=== PATIENT | female | born 1980 | race Caucasian/White ===

== ENCOUNTER 2016-06-15 03:43 | Emergency (ER) | payer SELFPAY ==
[2016-06-15 04:04] VITALS: BP 134/82
[2016-06-15] MEDS ORDERED: LORazepam 1 MG Tab PO ONE (04:19)
[2016-06-15] MEDS ORDERED: Ketorolac 60 MG/2 ML SDV IM ONE (04:19)
--- NOTE | 2016-06-15 04:21 | EDM.PDOC ---
ED HISTORY OF PRESENT ILLNESS - General Chief Complaint: Respiratory Problem Stated Complaint: SOB LEFT SHOULDER PAIN Time Seen by Provider: 06/15/16 04:10 Source: Reports: Patient, RN notes reviewed History Limitations: Reports: No limitations - History of Present Illness INITIAL COMMENTS - FREE TEXT/NARRATIVE: 35-year-old female presents emergency department day complaint of left shoulder pain and shortness of breath, she states had this for about 3 days it will come and go denies any nausea diaphoresis or radiation of the pain she takes no medications - Related Data Allergies/ADRs: Allergies Allergy/AdvReac Type Severity Reaction Status Date / Time No Known Allergies Allergy Verified 06/15/16 03:53 Home Meds: Home Meds NK [No Known Home Meds] 11/25/14 [History] 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: - Infectious Disease History Infectious Disease History: Reports: Chicken pox - Past Surgical History GI Surgical History: Reports: Cholecystectomy Female Surgical History: Reports: section Musculoskeletal Surgical History: Reports: Other (see below) Other Musculoskeletal Surgeries/Procedures:: left thumb surgery Social & Family History - Tobacco Use Smoking Status *Q: Never Smoker Years of Tobacco use: 10 Packs/Tins Daily: 0.5 Second Hand Smoke Exposure: Yes - Caffeine Use Caffeine Use: Reports: Coffee, Energy drinks, Soda, Tea - Recreational Drug Use Recreational Drug Use: No ED ROS GENERAL - Review of Systems Review Of Systems: See Below Constitutional: Reports: no symptoms HEENT: Reports: No symptoms Respiratory: Reports: Shortness of Breath Cardiovascular: Reports: Chest pain, Dyspnea on exertion GI/Abdominal: Reports: No symptoms : Reports: no symptoms Musculoskeletal: Reports: no symptoms Skin: Reports: no symptoms Neurological: Reports: No Symptoms Psychiatric: Reports: Other (Heavy stress) ED EXAM, GENERAL - Physical Exam Exam: See Below Free Text/Narrative:: General: Female, mildly anxious, alert and oriented x3 HEENT: head is atraumatic normocephalic, eyes pupils equal round reactive to light, sclera clear no conjunctivitis appreciated. Ears tympanic membranes clear and be[place] landmarks and light reflex are present bilaterally canals are clear. Nose no septal deviation, nares are clear, no blood present. Mouth mucosa is moist and pink no erythema or exudate noted in soft palate, tongue is midline uvula is midline, dentition is intact. Neck: Supple no thyromegaly no tracheal deviation. Nodes: Cervical nodes subclavicular nodes nontender no palpable lymphadenopathy noted. Lungs: clear to auscultation bilaterally with symmetrical respirations, no adventitious noise appreciated. CV: Regular rate and rhythm S1 and S2 appreciated no murmurs rubs or gallops noted. Abdomen: Soft, nontender, no palpable masses or organomegaly appreciated, no distention no guarding bowel sounds are present, . Neuro: Cranial nerves II through XII grossly intact Skin: Warm and dry, intact, multiple tattoos Extremities: No lower extremity edema appreciated, Course - Vital Signs Last Recorded V/S: Last Vital Signs Temp 99.2 F 06/15/16 03:53 Pulse 75 06/15/16 03:53 Resp 18 06/15/16 03:53 BP 134/82 06/15/16 03:53 Pulse Ox 97 06/15/16 03:53 - Orders/Labs/Meds Orders: Active Orders 24 hr Category Date Time Status Cardiac Monitoring [RC] .As Directed Care 06/15/16 04:17 Active EKG Documentation Completion [RC] ASDIRECTED Care 06/15/16 04:18 Active Chest 2V [CR] Urgent Exams 06/15/16 04:19 Taken EKG 12 Lead [EK] Stat Ther 06/15/16 04:18 Ordered Labs: Laboratory Tests 06/15/16 06/15/16 06/15/16 Range/Units 04:17 04:17 05:16 WBC 11.8 H (4.5-11.0) K/uL RBC 4.25 (3.30-5.50) M/uL Hgb 12.4 (12.0-15.0) g/dL Hct 38.4 (36.0-48.0) % MCV 90 (80-98) fL MCH 29 (27-31) pg MCHC 32 (32-36) % Plt Count 239 (150-400) K/uL Neut % (Auto) 74 H (36-66) % Lymph % (Auto) 16 L (24-44) % [place] % (Auto) 6 (2-6) % Eos % (Auto) 3 (2-4) % Baso % (Auto) 1 (0-1) % Sodium 141 (140-148) mmol/L Potassium 3.5 L (3.6-5.2) mmol/L Chloride 105 (100-108) mmol/L Carbon Dioxide 26 (21-32) mmol/L Anion Gap 13.5 (5.0-14.0) mmol/L BUN 8 (7-18) mg/dL Creatinine 0.9 (0.6-1.0) mg/dL Est Cr Clr Drug Dosing 92.05 mL/min Estimated GFR (MDRD) > 60 (>60) Glucose 95 (74-106) mg/dL Calcium 8.2 L (8.5-10.1) mg/dL Total Bilirubin 0.5 (0.2-1.0) mg/dL AST 41 H (15-37) U/L ALT 58 (12-78) U/L Alkaline Phosphatase 80 (46-116) U/L Troponin I < 0.017 (0.000-0.056) ng/mL Total Protein 7.4 (6.4-8.2) g/dL Albumin 3.4 (3.4-5.0) g/dL Globulin 4.0 H (2.3-3.5) g/dL Albumin/Globulin Ratio 0.9 L (1.2-2.2) Lipase 251 (73-393) U/L Urine Color Yellow Urine Appearance Clear Urine pH 5.0 (4.5-8.0) Ur Specific [place] 1.020 (1.008-1.030) Urine Protein Negative (NEGATIVE) mg/dL Urine Glucose (UA) Normal (NEGATIVE) mg/dL Urine Ketones Negative (NEGATIVE) mg/dL Urine Occult Blood Large (NEGATIVE) Urine Nitrite Negative (NEGATIVE) Urine Bilirubin Negative (NEGATIVE) Urine Urobilinogen Normal (NORMAL) mg/dL Ur Leukocyte Esterase Negative (NEGATIVE) Urine RBC 0-5 (0-5) Urine WBC 0-5 (0-5) Ur Epithelial Cells Rare Amorphous Sediment Not seen Urine Bacteria Few Urine Mucus Not seen Meds: Medications Discontinued Medications Generic Name Dose Route Start Last Admin Trade Name Freq PRN Reason Stop Dose Admin Ketorolac Tromethamine 60 mg 06/15/16 04:19 06/15/16 04:31 Toradol IM 06/15/16 04:20 60 mg ONETIME ONE Administration Lorazepam 1 mg 06/15/16 04:19 06/15/16 04:33 Ativan PO 06/15/16 04:20 1 mg ONETIME ONE Administration Departure - Departure Time of Disposition: 05:39 Disposition: Home, Self-Care 01 Condition: good Clinical Impression: Panic attack Forms: ED Department Discharge Additional Instructions: Use Ativan as needed for stress and anxiety, use ibuprofen or Motrin for chest wall pain, Please followup with your primary care provider in 3-5 days if not better, please call return to the emergency department with worsening of symptoms. - My Orders Last 24 Hours: My Active Orders 06/15/16 04:17 Cardiac Monitoring [RC] .As Directed 06/15/16 04:18 EKG Documentation Completion [RC] ASDIRECTED EKG 12 Lead [EK] Stat 06/15/16 04:19 Chest 2V [CR] Urgent - Assessment/Plan Last 24 Hours: My Active Orders 06/15/16 04:17 Cardiac Monitoring [RC] .As Directed 06/15/16 04:18 EKG Documentation Completion [RC] ASDIRECTED EKG 12 Lead [EK] Stat 06/15/16 04:19 Chest 2V [CR] Urgent Plan: Assessment Acuity = acute Site and laterality = panic attack Etiology = secondary to stress Manifestations = chest pain, shortness of breath Location of injury = home Lab values = CBC, CMP, urinalysis, troponin, chest x-ray are within normal limits Plan She had good improvement combination Ativan and Toradol plan is discharge home with 10 Ativan followup primary care in 3-5 days for reevaluation Patient was in agreement with the plan all questions were answered, they were instructed to return to the emergency department or call for worsening symptoms. This note was dictated using [employer] voice recognition software please call with any questions.
--- NOTE | 2016-06-15 09:13 | CR ---
Chest 2V FINDINGS: There are shallow lung volumes. There is mild basilar atelectasis. The heart and vascular structures are normal in appearance. No infiltrates or effusions are demonstrated. The skeletal stru ctures are unremarkable. IMPRESSION: Negative exam.
== END 2016-06-15 05:56 | disposition home or self-care (01) ==
LOC: JP.ED 03:43
DX: F41.0 Panic disorder [episodic paroxysmal anxiety] (principal); M25.512 Pain in left shoulder; Z90.49 Acquired absence of other specified parts of digestive tract
CPT/HCPCS: 36415; 71020; 80053; 81001; 83690; 84484; 85025; 93005; 96372; 99284; A9270; J1885; 93010; 99283

== ENCOUNTER 2017-08-26 20:45 | Emergency (ER) | payer MEDICAID ==
[2017-08-26 21:10] VITALS: BP 123/79
--- NOTE | 2017-08-26 21:12 | EDM.PDOC ---
ED HPI GENERAL MEDICAL PROBLEM - General Chief Complaint: Upper Extremity Injury/Pain Stated Complaint: CROOKED RT RING FINGER Time Seen by Provider: 08/26/17 20:51 Source of Information: Reports: Patient History Limitations: Reports: No Limitations - History of Present Illness INITIAL COMMENTS - FREE TEXT/NARRATIVE: for one week, pain to right hand, ring finger no injury finger has full rom, +sensation, no pus, no red streaking Onset: Gradual Location: Reports: Upper Extremity, Right Improves with: Reports: None Worsens with: Reports: None - Related Data Allergies Allergy/AdvReac Type Severity Reaction Status Date / Time No Known Allergies Allergy Verified 08/26/17 21:02 Home Meds: Home Meds NK [No Known Home Meds] 11/25/14 [History] 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 ED EXAM, GENERAL - Physical Exam Exam: See Below Exam Limited By: No Limitations General Appearance: Alert, WD/WN, No Apparent Distress Head: Atraumatic, Normocephalic Respiratory/Chest: Lungs Clear Cardiovascular: Regular Rate, Rhythm Extremities: Normal Inspection, Normal Range of Motion, Other (ring finger, full rom, painful mid/ no discharge/no injury) Course - Vital Signs Last Recorded V/S: Last Vital Signs Temp 97.5 F 08/26/17 21:06 Pulse 67 08/26/17 21:06 Resp 14 08/26/17 21:06 BP 123/79 08/26/17 21:06 Pulse Ox 98 08/26/17 21:06 Departure - Departure Time of Disposition: 21:11 Disposition: Home, Self-Care 01 Condition: Good Clinical Impression: Finger pain, right - Discharge Information Instructions: Pain Without a Known Cause Referrals: PCP,None [Primary Care Provider] - Forms: ED Department Discharge Additional Instructions: Ice to affected area Tylenol/motrin for pain Keflex for infection; do not take unless it is getting worse 1)fever, 2) redness 3) drainage/pus - Problem List & Annotations (1) Finger pain, right SNOMED Code(s): 59211792 Code(s): M79.644 - PAIN IN RIGHT FINGER(S) Status: Acute Priority: Low Current Visit: Yes - Problem List Review Problem List Initiated/Reviewed/Updated: Yes
== END 2017-08-26 21:30 | disposition home or self-care (01) ==
LOC: JP.ED 20:45
DX: M79.644 Pain in right finger(s) (principal)
CPT/HCPCS: 99283

== ENCOUNTER 2018-07-11 16:27 | Emergency (ER) | payer MEDICAID ==
[2018-07-11 16:42] VITALS: BP 147/90
[2018-07-11] MEDS ORDERED: Ketorolac 60 MG/2 ML SDV IM ONE (17:20)
[2018-07-11] MEDS ORDERED: LORazepam 0.5 MG Tab PO ONE (17:20)
--- NOTE | 2018-07-11 18:31 | CRLCR ---
HISTORY: Anterior chest wall trauma. TECHNIQUE: Two views of the sternum. COMPARISON: No prior. FINDINGS: The junction of the manubrium with the body of the sternum appears maintained. There is no acute sternal fracture. IMPRESSION: No acute sternal fracture. Dictated by Jose Castillo MD @ 07/11/2018 6:30:22 PM Dictated by: Jose Castillo MD @ 07/11/2018 18:30:25 (Electronically Signed)
--- NOTE | 2018-07-11 18:31 | CRLCR ---
HISTORY: Shortness of breath. TECHNIQUE: Two views of the chest. COMPARISON: No prior. FINDINGS: Cardiac size and pulmonary vasculature within normal limits. There is no focal lung infiltrate or pulmonary edema. No pneumothorax or pleural effusion. No acute bony abnormality. IMPRESSION: No acute cardiopulmonary disease. Dictated by Jose Castillo MD @ 07/11/2018 6:28:42 PM Dictated by: Jose Castillo MD @ 07/11/2018 18:28:48 (Electronically Signed)
--- NOTE | 2018-07-11 18:37 | EDM.PDOC ---
ED HPI GENERAL MEDICAL PROBLEM - General Chief Complaint: General Stated Complaint: TROUBLE BREATHING Time Seen by Provider: 07/11/18 16:40 Source of Information: Reports: Patient History Limitations: Reports: No Limitations - History of Present Illness INITIAL COMMENTS - FREE TEXT/NARRATIVE: pt arrived feeling very sob. She felt like she could not get her breath. She was putting groceries away and a gallon of vibnegar came down on her sterum and knocked the wind out of her. She does think she paniked. 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: Reports: - Infectious Disease History Infectious Disease History: Reports: Chicken Pox - Past Surgical History GI Surgical History: Reports: Cholecystectomy Female Surgical History: Reports: Section Musculoskeletal Surgical History: Reports: Other (See Below) Other Musculoskeletal Surgeries/Procedures:: thumb surgery Social & Family History - Tobacco Use Smoking Status *Q: Current Every Day Smoker Years of Tobacco use: 15 Packs/Tins Daily: 0.1 - Caffeine Use Caffeine Use: Reports: Soda - Recreational Drug Use Recreational Drug Use: No - Living Situation & Occupation Occupation: Employed (working two job, both required prolonged standing.) ED ROS GENERAL - Review of Systems Review Of Systems: See Below Constitutional: Reports: No Symptoms HEENT: Reports: No Symptoms Respiratory: Reports: Shortness of Breath, Other (pt felt like she couldn,t get her breath. ) Cardiovascular: Reports: No Symptoms Endocrine: Reports: No Symptoms GI/Abdominal: Reports: No Symptoms : Reports: No Symptoms Musculoskeletal: Reports: Other (pain in the anterior chest. ) Skin: Reports: No Symptoms ED EXAM, GENERAL - Physical Exam Exam: See Below Free Text/Narrative:: Pt is breathing short and fasr. She continues to feel short of breath. She still feels panicy. Exam Limited By: No Limitations General Appearance: Alert, Anxious, Moderate Distress Ears: Normal TMs Nose: Normal Inspection Throat/Mouth: Normal Inspection Head: Atraumatic Neck: Normal Inspection Respiratory/Chest: Other (pt is hyperventilating. ) Cardiovascular: Regular Rate, Rhythm GI/Abdominal: Soft, Non-Tender (Female) Exam: Deferred Rectal (Female) Exam: Deferred Back Exam: Normal Inspection Extremities: Normal Inspection Neurological: Alert, Oriented, Normal Cognition Psychiatric: Normal Affect Course - Vital Signs Last Recorded V/S: Last Vital Signs Temp 37.1 C 07/11/18 16:42 Pulse 80 07/11/18 16:42 Resp 17 07/11/18 16:42 BP 147/90 H 07/11/18 16:42 Pulse Ox 100 07/11/18 16:42 - Orders/Labs/Meds Meds: Medications Discontinued Medications Generic Name Dose Route Start Last Admin Trade Name Freq PRN Reason Stop Dose Admin Ketorolac Tromethamine 60 mg 07/11/18 17:20 07/11/18 17:30 Toradol IM 07/11/18 17:21 60 mg ONETIME ONE Administration Lorazepam 0.5 mg 07/11/18 17:20 07/11/18 17:30 Ativan PO 07/11/18 17:21 0.5 mg ONETIME ONE Administration - Re-Assessments/Exams Free Text/Narrative Re-Assessment/Exam: 07/11/18 18:42 chest xray and a xray of the sternum were obtained which were neg. she was given ativan .5 and torodol 50mg ( im) She is now feeling much better. Departure - Departure Time of Disposition: 18:35 Disposition: Home, Self-Care 01 Condition: Fair Clinical Impression: Chest wall contusion, Hyperventilation - Discharge Information Referrals: PCP,None [Primary Care Provider] - Forms: ED Department Discharge Care Plan Goals: cool pack to the chest, tylenol and motrin 400mg for the discomfort.
== END 2018-07-11 18:43 | disposition home or self-care (01) ==
LOC: JP.ED 16:27
DX: S20.219A Contusion of unspecified front wall of thorax, initial encounter (principal); R06.4 Hyperventilation; F17.210 Nicotine dependence, cigarettes, uncomplicated; W20.8XXA Other cause of strike by thrown, projected or falling object, initial encounter
CPT/HCPCS: 71046; 71120; 96372; 99284; A9270; J1885

== ENCOUNTER 2019-08-31 11:55 | Emergency (ER) | payer MEDICAID, OTHER ==
[2019-08-31 12:29] VITALS: BP 117/66; PULSE 76
--- NOTE | 2019-08-31 13:10 | EDM.PDOC ---
ED HPI GENERAL MEDICAL PROBLEM - General Chief Complaint: Skin Complaint Stated Complaint: RASH ALL OVER BODY Time Seen by Provider: 08/31/19 12:45 Source of Information: Reports: Patient - History of Present Illness INITIAL COMMENTS - FREE TEXT/NARRATIVE: iVcky is a 38 year old female presenting to [facility] for hives which started last night but much worse upon awakening. Patient took a hot shower to wash her skin and the itching worsened. Patient denies mouth, tongue, throat swelling or change in her voice. Patient denies shortness of breath, lightheadedness, weakness, nausea or GI concerns. Patient took Benadryl 25mg which improved symptoms slightly. 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 Patient does not know any specific exposure, possibly new sunscreen. Patient has never had hives in the to reference for previous reactions. 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: - Infectious Disease History Infectious Disease History: Reports: Chicken Pox - Past Surgical History GI Surgical History: Reports: Cholecystectomy Female Surgical History: Reports: Section Musculoskeletal Surgical History: Reports: Other (See Below) Other Musculoskeletal Surgeries/Procedures:: thumb surgery Social & Family History - Tobacco Use Smoking Status *Q: Current Every Day Smoker Years of Tobacco use: 20 Packs/Tins Daily: 0.2 - Caffeine Use Caffeine Use: Reports: Soda - Recreational Drug Use Recreational Drug Use: No - Living Situation & Occupation Occupation: Employed (working two job, both required prolonged standing.) ED ROS GENERAL - Review of Systems Review Of Systems: Comprehensive ROS is negative, except as noted in HPI. ED EXAM, SKIN/RASH Exam: See Below Exam Limited By: No Limitations General Appearance: Alert, WD/WN, Mild Distress (itching and irritation due to rash) Eye Exam: Bilateral Eye: EOMI, Normal Inspection Ears: Normal External Exam, Hearing Grossly Normal Nose: Normal Inspection Throat/Mouth: Normal Inspection, Normal Lips, Normal Oropharynx, Normal Voice, No Airway Compromise. No: Dysphagia, Inflammation Neck: Normal Inspection, Supple, Full Range of Motion Respiratory/Chest: No Respiratory Distress, Lungs Clear, Normal Breath Sounds, Chest Non-Tender Cardiovascular: Normal Peripheral Pulses, Regular Rate, Rhythm GI/Abdominal: Normal Bowel Sounds, Soft, Non-Tender (Female) Exam: Deferred Rectal (Female) Exam: Deferred Back Exam: Normal Inspection, Other (wheal and flare lesions in various sizes on entire back) Extremities: Normal Inspection, Normal Range of Motion, No Pedal Edema. No: Pedal Edema Neurological: Alert, Oriented, CN II-XII Intact, Normal Cognition, Normal Gait Psychiatric: Normal Affect, Normal Mood Skin: Warm, Dry, Rash (wheal and flare lesions in multiple locations greater than 20 of varying size. Flare blanches to palpation and no signs of dermatitis on overlying skin) Location, Skin: Neck, Chest, Abdomen, Back, Upper Extremity, Right, Upper Extremity, Left, Lower Extremity, Right, Lower Extremity, Left, Generalized (toes and hand ). No: Palms, Soles Characteristics: Erythematous, Other (wheal and flare lesions in multiple locations greater than 20 of varying size. Flare blanches to palpation and no signs of dermatitis on overlying skin) Associated features: Warmth, Induration Course - Vital Signs Last Recorded V/S: Last Vital Signs Temp 36.3 C 08/31/19 12:31 Pulse 76 08/31/19 12:31 Resp 17 08/31/19 12:31 BP 117/66 08/31/19 12:31 Pulse Ox 100 08/31/19 12:31 Departure - Departure Time of Disposition: 13:10 Disposition: Home, Self-Care 01 Clinical Impression: Hives of unknown origin - Discharge Information Prescriptions: hydrALAZINE HCl [Hydralazine HCl] 25 mg PO Q6H PRN 10 Days #30 tablet PRN Reason: Hives Referrals: PCP,None [Primary Care Provider] - Additional Instructions: 1. Cool baths and avoid hot water or warm environment which will make itching and hives worse. 2. Hydroxyzine 25 mg every 6-8 hrs for itching and hives (may take 50 at night if needed). NO ADDITIONAL BENADRYL. 3. Topical Aveeno anti-itch lotion to affected body surface area. May purchase Hydrocortisone cream and apply to affected areas as needed Max or 20% and 2 weeks. 4. Write down everything you have been exposed to over the last 36-48 hours (24 hrs before hives started). Keep list to reference in the future if hive reoccur. 5. Call PCP for recheck in 2 weeks if rash /hives are not resolved for additional treatment recommendations Prednisone or Doxepin. 6. Return to ER immediately if shortness of breath, mouth, tongue or throat swelling, Nausea and vomiting, lightheadedness dizziness or weakness which may increase worsening allergic reaction. Sepsis Event Note (ED) - Evaluation Sepsis Screening Result: No Definite Risk - Focused Exam Vital Signs: Vital Signs Temp Pulse Resp BP Pulse Ox 08/31/19 12:31 36.3 C 76 17 117/66 100 08/31/19 12:27 36.3 C 76 17 117/66 100
== END 2019-08-31 13:19 | disposition home or self-care (01) ==
LOC: JP.ED 11:55
DX: L50.9 Urticaria, unspecified (principal); F17.210 Nicotine dependence, cigarettes, uncomplicated
CPT/HCPCS: 99282

== ENCOUNTER 2019-12-09 14:34 | Emergency (ER) | payer MEDICAID ==
[2019-12-09 15:22] VITALS: BP 130/76; PULSE 69
[2019-12-09] MEDS ORDERED: Ketorolac 30 MG/ML SDV IM ONE (15:46)
--- NOTE | 2019-12-09 15:53 | EDM.PDOC ---
<SheelaGiovana fowler M - Last Filed: 12/09/19 16:07> ED HPI GENERAL MEDICAL PROBLEM - General Chief Complaint: Upper Extremity Injury/Pain Stated Complaint: SHOULDER PAIN Time Seen by Provider: 12/09/19 15:48 Source of Information: Reports: Patient, RN, RN Notes Reviewed History Limitations: Reports: No Limitations - History of Present Illness INITIAL COMMENTS - FREE TEXT/NARRATIVE: Pt here today with worsening of left upper humerus and left shoulder. Denies injury. Pain does not radiate to only deltoid. pain is 6/10. Aches. Denies fever, SOB, or chills. 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: - Infectious Disease History Infectious Disease History: Reports: Chicken Pox - Past Surgical History GI Surgical History: Reports: Cholecystectomy Female Surgical History: Reports: Section Musculoskeletal Surgical History: Reports: Other (See Below) Other Musculoskeletal Surgeries/Procedures:: thumb surgery Social & Family History - Tobacco Use Tobacco Use Status *Q: Current Every Day Tobacco User Years of Tobacco use: 20 Packs/Tins Daily: 0.5 - Caffeine Use Caffeine Use: Reports: Coffee, Soda - Recreational Drug Use Recreational Drug Use: No - Living Situation & Occupation Occupation: Employed (working two job, both required prolonged standing.) Review of Systems - Review of Systems Review Of Systems: See Below Constitutional: Reports: No Symptoms Eyes: Reports: No Symptoms Ears: Reports: No Symptoms Nose: Reports: No Symptoms Mouth/Throat: Reports: No Symptoms Respiratory: Reports: No Symptoms Cardiovascular: Reports: No Symptoms GI/Abdominal: Reports: No Symptoms Genitourinary: Reports: No Symptoms Musculoskeletal: Reports: Arm Pain (L upper arm/shoulder) Skin: Reports: No Symptoms Neurological: Reports: No Symptoms Psychiatric: Reports: No Symptoms ED EXAM, GENERAL - Physical Exam Exam: See Below Exam Limited By: No Limitations General Appearance: Alert, WD/WN, Mild Distress Head: Normocephalic Neck: Normal Inspection, Non-Tender, Full Range of Motion Respiratory/Chest: Lungs Clear Cardiovascular: Regular Rate, Rhythm Peripheral Pulses: 2+: Radial (L), Radial (R), Dorsalis Pedis (L), Dorsalis Pedis (R) (Female) Exam: Deferred Rectal (Female) Exam: Deferred Extremities: Arm Pain (L upper arm/shoulder) Neurological: Alert, Oriented, CN II-XII Intact Psychiatric: Normal Affect, Normal Mood Skin Exam: Warm, Dry Course - Radiology Interpretation Free Text/Narrative:: Xray completed left humerus. Departure - Departure Time of Disposition: 16:01 Disposition: Home, Self-Care 01 Condition: Good Clinical Impression: Muscle strain - Discharge Information *PRESCRIPTION DRUG MONITORING PROGRAM REVIEWED*: Not Applicable *COPY OF PRESCRIPTION DRUG MONITORING REPORT IN PATIENT HOLDEN: Not Applicable Instructions: Muscle Strain Referrals: PCP,None [Primary Care Provider] - Forms: ED Department Discharge, ED Return to Work/School Form Care Plan Goals: Please allow for rest and immobilization of left upper arm. You may apply ice to affected area for comfort. Please take Motrin or Ibuprofen 800 mg every 8 hours as needed for pain relief. If the pain continues or worsens, please come to the ER or arrange a follow up with your provider. Sepsis Event Note (ED) - Evaluation Sepsis Screening Result: No Definite Risk - Problem List & Annotations (1) Muscle strain SNOMED Code(s): 03990814 Code(s): T14.8XXA - OTHER INJURY OF UNSPECIFIED BODY REGION, INITIAL ENCOUNTER Status: Acute Priority: High - Problem List Review Problem List Initiated/Reviewed/Updated: Yes - Assessment/Plan Plan: The xray of your left humerus was negative. Please allow for rest and immobilization of left upper arm. You may apply ice to affected area for comfort. Please take Motrin or Ibuprofen 800 mg every 8 hours as needed for pain relief. If the pain continues or worsens, please come to the ER or arrange a follow up with your provider. <Jerardo Campos - Last Filed: 12/10/19 07:35> Course - Vital Signs Last Recorded V/S: Last Vital Signs Temp 97.6 F 12/09/19 15:22 Pulse 69 12/09/19 15:22 Resp 14 12/09/19 15:22 BP 130/76 12/09/19 15:22 Pulse Ox 100 12/09/19 15:22 - Orders/Labs/Meds Orders: Active Orders 24 hr Category Date Time Status Humerus Lt [CR] Stat Exams 12/09/19 15:47 Taken Meds: Medications Discontinued Medications Generic Name Dose Route Start Last Admin Trade Name Freq PRN Reason Stop Dose Admin Ketorolac Tromethamine 30 mg 12/09/19 15:46 12/09/19 16:04 Toradol IM 12/09/19 15:47 30 mg ONETIME ONE Administration - Re-Assessments/Exams Free Text/Narrative Re-Assessment/Exam: 12/09/19 16:09 Patient has full active range of motion of her left arm, rotator cuff is intact. Palpation tenderness is along the bicipital or tricipital tendon. X-rays negative. Agree with above assessment and plan for treatment. Departure - Departure Time of Disposition: 16:31 Attestation - Student - Attestation Statement Attestation Statement: I personally performed or re-performed the physical examination and medical decision making. I have verified all student documentation or findings, including history, physical exam and/or medical decision making.
--- NOTE | 2019-12-10 09:06 | CR ---
Humerus Lt CLINICAL HISTORY: Arm pain, no known injury FINDINGS: There is no acute fracture within the humerus. IMPRESSION: Negative left humerus.
== END 2019-12-09 16:31 | disposition home or self-care (01) ==
LOC: JP.ED 14:34
DX: S46.912A Strain of unspecified muscle, fascia and tendon at shoulder and upper arm level, left arm, initial encounter (principal); F17.210 Nicotine dependence, cigarettes, uncomplicated; X58.XXXA Exposure to other specified factors, initial encounter
CPT/HCPCS: 73060; 96372; 99283; J1885

== ENCOUNTER 2020-10-20 06:41 | Emergency (ER) | payer MEDICAID ==
[2020-10-20 07:10] VITALS: BP 117/68; PULSE 71
--- NOTE | 2020-10-20 07:24 | EDM.PDOC ---
ED HPI GENERAL MEDICAL PROBLEM - General Chief Complaint: Lower Extremity Injury/Pain Stated Complaint: RIGHT KNEE PAIN Time Seen by Provider: 10/20/20 07:10 Source of Information: Reports: Patient, Old Records, RN History Limitations: Reports: No Limitations - History of Present Illness INITIAL COMMENTS - FREE TEXT/NARRATIVE: 39 yo female here with R knee swelling and pain. Problem began several days ago and is getting worse. Now that knee is quite swollen with decreased ROM. Recalls no injury. Took acetaminophen today for the pain. Has not been to the clinic for this. Wants a note for work. 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: - Infectious Disease History Infectious Disease History: Reports: Chicken Pox - Past Surgical History GI Surgical History: Reports: Cholecystectomy Female Surgical History: Reports: Section Musculoskeletal Surgical History: Reports: Other (See Below) Other Musculoskeletal Surgeries/Procedures:: thumb surgery Social & Family History - Tobacco Use Tobacco Use Status *Q: Light Tobacco User Years of Tobacco use: 20 Packs/Tins Daily: 0.5 - Caffeine Use Caffeine Use: Reports: Coffee, Soda - Recreational Drug Use Recreational Drug Use: No - Living Situation & Occupation Occupation: Employed (working two job, both required prolonged standing.) Review of Systems - Review of Systems Review Of Systems: See Below Constitutional: Reports: No Symptoms Musculoskeletal: Reports: Joint Pain (R knee), Joint Swelling (R knee) Skin: Reports: No Symptoms Neurological: Reports: No Symptoms ED EXAM, GENERAL - Physical Exam Exam: See Below Exam Limited By: No Limitations General Appearance: Alert, WD/WN, No Apparent Distress Extremities: Joint Swelling (R knee with effusion), Limited Range of Motion, Other (tender post/medial joint line). No: Non-Tender, Increased Warmth, Redness Neurological: Alert, Oriented, CN II-XII Intact, Normal Cognition, No Motor/Sensory Deficits Skin Exam: Warm, Dry, Intact, Normal Color, No Rash Course - Vital Signs Text/Narrative:: 6 inch TALAT applied Last Recorded V/S: Last Vital Signs Temp 37.2 C 10/20/20 07:13 Pulse 71 10/20/20 07:13 Resp 18 10/20/20 07:13 BP 117/68 10/20/20 07:13 Pulse Ox 97 10/20/20 07:13 - Orders/Labs/Meds Orders: Active Orders 24 hr Category Date Time Status Consult to Orthopedic Clinic [CONS] Routine Cons 10/20/20 07:17 Ordered Departure - Departure Time of Disposition: 07:23 Disposition: Home, Self-Care 01 Condition: Good Clinical Impression: Right knee meniscal tear Qualifiers: Tear current or old: current Encounter type: initial encounter Meniscus of knee: medial Meniscus tear of knee type: unspecified type Qualified Code(s): S83.241A - Other tear of medial meniscus, current injury, right knee, initial encounter - Discharge Information *PRESCRIPTION DRUG MONITORING PROGRAM REVIEWED*: Not Applicable *COPY OF PRESCRIPTION DRUG MONITORING REPORT IN PATIENT HOLDEN: Not Applicable Instructions: Meniscus Tear Referrals: PCP,None [Primary Care Provider] - Additional Instructions: Take ibuprofen and/or acetaminophen as needed for pain relief. Use TALAT for support. Relative rest with that knee. F/U with orthopedics, someone will contact you with an appt later today. Sepsis Event Note (ED) - Evaluation Sepsis Screening Result: No Definite Risk - Focused Exam Vital Signs: Vital Signs Temp Pulse Resp BP Pulse Ox 10/20/20 07:13 37.2 C 71 18 117/68 97 10/20/20 07:12 37.2 C 71 18 117/68 97 10/20/20 07:05 37.2 C 71 18 117/68 97 - My Orders Last 24 Hours: My Active Orders 10/20/20 07:17 Consult to Orthopedic Clinic [CONS] Routine - Assessment/Plan Last 24 Hours: My Active Orders 10/20/20 07:17 Consult to Orthopedic Clinic [CONS] Routine
== END 2020-10-20 07:41 | disposition home or self-care (01) ==
LOC: JP.ED 06:41
DX: S83.241A Other tear of medial meniscus, current injury, right knee, initial encounter (principal); Z72.0 Tobacco use; X50.0XXA Overexertion from strenuous movement or load, initial encounter
CPT/HCPCS: 99283

== ENCOUNTER 2020-11-10 08:35 | Day surgery (SDC) | payer MEDICAID ==
[~2020-11-10 08:35] MED LIST: Bupivacaine 0.5% 30 ML SDV ONE
[2020-11-10] MEDS ORDERED: fentaNYL 250 MCG/5 ML SDV ONE ×2 (08:36→11:44)
[2020-11-10] MEDS ORDERED: Glycopyrrolate 0.2 MG/ML 5 ML MDV ONE (08:36)
[2020-11-10] MEDS ORDERED: Ondansetron 4 MG/2 ML SDV ONE (08:36)
[2020-11-10] MEDS ORDERED: Succinylcholine 200 MG/10 ML MDV ONE (08:36)
[2020-11-10] MEDS ORDERED: Rocuronium 50 MG/5 ML Vial ONE (08:36)
[2020-11-10] MEDS ORDERED: Propofol 200 MG/20 ML SDV ONE (08:36)
[2020-11-10] MEDS ORDERED: Neostigmine Methylsulfate 1 MG/ML 5 ML Syringe ONE (08:36)
[2020-11-10] MEDS ORDERED: Dexamethasone 4 MG/ML SDV ONE (08:36)
[2020-11-10] MEDS ORDERED: Lactated Ringers 1,000 ML IV SCH (09:00)
[2020-11-10] MEDS ORDERED: Nozin Nasal Sanitizer NASBOTH ONE (09:00)
[2020-11-10] MEDS ORDERED: ceFAZolin 1 GM in Premix Bag 1 BAG IV ONE (09:30)
[2020-11-10] MEDS ORDERED: Acetaminophen/HYDROcodone 325-5 MG Tab PO ONE (12:59)
[2020-11-10 14:38] VITALS: BP 127/74; PULSE 60
--- NOTE | 2020-11-24 20:16 | OR ---
DATE OF PROCEDURE: 11/10/2020 SURGEON: Beka Patrick MD PREOPERATIVE DIAGNOSES: 1. Large popliteal cyst dissecting down below mid calf. 2. Meniscus tear, right knee. POSTOPERATIVE DIAGNOSES: 1. Large popliteal cyst dissecting into mid calf. 2. Small degenerative medial meniscus tear. 3. Degenerative lateral meniscus tear. PROCEDURES: 1. Open decompression of popliteal cyst into calf. 2. Arthroscopy, right knee, with partial medial and partial lateral meniscectomies. FAMILY DINNER SERVICE SPECIALIST: KATHY Randall ANESTHESIA: Vicky is a 40-year-old female with a history of progressive right knee and leg pain for the past couple of weeks. She has been experiencing increasing swelling in the knee, calf, and down into the foot. MRIs of the knee and calf revealed evidence of meniscus tear, popliteal cyst, and extension of the popliteal cyst distally beneath the gastroc to below mid calf. She now presents for evacuation and decompression of the popliteal cyst arthroscopy of the knee with partial meniscectomies. Risks, benefits, and potential complications of the procedure were discussed. DESCRIPTION OF PROCEDURE: After adequate anesthesia was obtained, the patient was placed supine with a tourniquet about the right upper thigh. Right leg was prepped and draped in a sterile fashion. Leg was exsanguinated by gravity and tourniquet inflated to 300 mmHg pressure. Incision of approximately a centimeter and a half was made just medial to the ridge of the tibia at mid georges and carried down through the subcutaneous tissues. Blunt dissection was carried over the edge of the tibia and the fascia into the posterior compartment was divided. Blunt dissection carried out deep to the gastrocnemius and entered into the large synovial cyst. Yankauer suction was placed into the space and large amounts of inspissated synovial fluid along with some old residual hematoma was evacuated. This tracked several centimeters distally and proximally up to the popliteal space. This was thoroughly decompressed, and decompression was visible superficially in the calf. Attention was turned to the knee where a standard anterior inferior, medial and lateral portals were established. The scope was introduced. A moderate amount of synovitis was present throughout the suprapatellar pouch. The cartilage of the patellofemoral joint was intact. Moving into the medial compartment, degenerative tear noted in the posterior horn. This was debrided with a shaver removing only a small section, taking this back to a stable margin. The articular surfaces of the femoral condyle and tibial plateau were intact. Meniscus was thoroughly probed and no other tears were identified. Anterior and posterior cruciate ligaments were intact. The lateral compartment revealed a more frayed tear of the anterior horn extending to the midbody. This was also debrided with a shaver. This was taken back to stable margins. The meniscus was probed and no other abnormalities were identified. The articular cartilage was intact. The knee was drained, scope was withdrawn, the port sites were closed with 3-0 Monocryl, and Steri-Strips were applied. Smaller incision was closed with 2-0 Vicryl, 3-0 Monocryl, and Steri-Strips applied. Sterile dressing was then placed with a light compressive dressing from the ankle to the knee. The patient tolerated the procedure well. There were no complications. Taken from the operating room in stable condition. Beka Patrick MD /[id number] JONAS
== END 2020-11-10 14:40 | disposition home or self-care (01) ==
LOC: JP.SDS 08:35
PROVIDERS: ATTEND Specialist
DX: M23.241 Derangement of anterior horn of lateral meniscus due to old tear or injury, right knee (principal); M23.211 Derangement of anterior horn of medial meniscus due to old tear or injury, right knee; M71.21 Synovial cyst of popliteal space [Baker], right knee
CPT/HCPCS: 27345; 29880; 36415; 80053; 81025; 85027; A9270; J0330; J0690; J1100; J2405; J2704; J2710; J3010; J3490; J7120

== ENCOUNTER 2021-05-08 21:59 | Emergency (ER) | payer MEDICAID ==
[2021-05-08 22:20] VITALS: BP 138/72; PULSE 72
[2021-05-08] MEDS ORDERED: Ketorolac 30 MG/ML SDV IM ONE (22:34)
== END 2021-05-08 23:30 | disposition home or self-care (01) ==
LOC: JP.ED 21:59
DX: M25.561 Pain in right knee (principal); Z72.0 Tobacco use
CPT/HCPCS: 73562; 96372; 99282; 99283; J1885

== ENCOUNTER 2021-07-01 23:02 | Emergency (ER) | payer MEDICAID ==
[2021-07-01 23:28] VITALS: BP 152/87; PULSE 65
== END 2021-07-01 23:50 | disposition home or self-care (01) ==
LOC: JP.ED 23:02
DX: K04.7 Periapical abscess without sinus (principal); Z72.0 Tobacco use
CPT/HCPCS: 99281; 99283

== ENCOUNTER 2021-11-01 10:59 | Emergency (ER) | payer MEDICAID ==
[2021-11-01] MEDS: Ketorolac 30 MG/ML SDV IM ONE (11:31)
[2021-11-01 11:37] VITALS: BP 141/84; PULSE 77
== END 2021-11-01 12:13 | disposition home or self-care (01) ==
LOC: JP.ED 10:59
DX: S43.402A Unspecified sprain of left shoulder joint, initial encounter (principal); F17.210 Nicotine dependence, cigarettes, uncomplicated; W23.1XXA Caught, crushed, jammed, or pinched between stationary objects, initial encounter
CPT/HCPCS: 73030-26-LT; 73030-LT; 96372; 99283; J1885

== ENCOUNTER 2022-08-15 19:31 | Emergency (ER) | payer MEDICAID ==
[2022-08-15 20:46] VITALS: BP 136/81; PULSE 62
[2022-08-15] MEDS ORDERED: hydrOXYzine HCl 25 MG Tab PO ONE (20:52)
[2022-08-15] MEDS ORDERED: Dexamethasone 4 MG/ML SDV IVPUSH ONE (20:52)
[2022-08-15] MEDS ORDERED: Sodium Chloride 0.9% 10 ML Syringe FLUSH PRN (20:52)
[2022-08-15] MEDS ORDERED: Cetirizine 10 MG Tab PO ONE (20:57)
== END 2022-08-15 22:42 | disposition home or self-care (01) ==
LOC: JP.ED 19:31
DX: S00.06XA Insect bite (nonvenomous) of scalp, initial encounter (principal); Z91.038 Other insect allergy status; W57.XXXA Bitten or stung by nonvenomous insect and other nonvenomous arthropods, initial encounter
CPT/HCPCS: 96374; 99281; A9270; J1100; J3490

== ENCOUNTER 2024-04-02 15:33 | Emergency (ER) | payer MEDICAID, OTHER ==
[2024-04-02 15:54] VITALS: BP 149/79; PULSE 88
== END 2024-04-02 16:18 | disposition home or self-care (01) ==
LOC: JP.ED 15:33
DX: L03.113 Cellulitis of right upper limb (principal); F17.210 Nicotine dependence, cigarettes, uncomplicated; Z79.899 Other long term (current) drug therapy
CPT/HCPCS: 99283